=== PATIENT | male | born 1975 | race Caucasian/White ===

== ENCOUNTER 2021-02-27 15:52 | Emergency (ER) | payer OTHER ==
[2021-02-27 16:12] VITALS: TEMP 98.6; BMI 29.5
[2021-02-27] MEDS ORDERED: KETOROLAC TROMETHAMINE 30 MG/1 ML VIAL IVPUSH STA (16:14)
[2021-02-27] MEDS ORDERED: ONDANSETRON 4 MG/2 ML VIAL IVPUSH ONE (16:14)
[2021-02-27] MEDS ORDERED: SODIUM CHLORIDE 1,000 ML IV STA (16:14)
[2021-02-27 17:08] LABS: BASO % 0.3 % (0-2.0); EOS % 0.7 % (0-4.5); HEMATOCRIT 41.7 % (35.4-49); HEMOGLOBIN 14.1 GM/dL (11.7-16.9); LYMPH % 9.3 % (8-40); MCH 30.2 pg (25.7-33.7); MCHC 33.9 g/dl (32.0-35.9); MEAN CELL VOLUME 89.3 fl (80-96); MEAN PLT VOLUME 7.2 fl (7.5-11.1); MONO % 3.3 % (3.8-10.2); NEUT % 86.4 % (42.8-82.8); PLATELET COUNT 519 K/MM3 (134-434); RBC 4.67 M/mm3 (4.00-5.60); RDW 13.8 % (11.9-15.9); WHITE BLOOD COUNT 12.4 K/mm3 (4.0-10.0)
[2021-02-27 17:11] LABS: EPI CELLS 3 /uL (0-25.1); HYALINE CASTS 46 /uL (0-3.1); URINE APPEARANCE TURBID; URINE BILIRUBIN 2+ (NEGATIVE); URINE COLOR RED; URINE GLUCOSE (UA) NEGATIVE (NEGATIVE); URINE KETONE NEGATIVE (NEGATIVE); URINE LEUK ESTERASE 2+ (NEGATIVE); URINE NITRITE POSITIVE (NEGATIVE); URINE PROTEIN 3+ (NEGATIVE); URINE UROBILINOGEN 0.2 mg/dL (0.2-1.0); URINE WBC 808 /uL (0-25.8)
[2021-02-27 17:13] VITALS: BP 125/85; PULSE 101
[2021-02-27 17:19] LABS: POTASSIUM 3.9 mmol/L (3.5-5.1)
[2021-02-27 17:21] LABS: ALBUMIN 4.7 g/dl (3.4-5.0); CALCIUM 9.6 mg/dL (8.5-10.1)
[2021-02-27 17:22] LABS: BLOOD UREA NITROGEN 25.5 mg/dL (7-18)
[2021-02-27 17:25] LABS: CREATININE 1.4 mg/dL (0.55-1.3)
[2021-02-27 17:26] LABS: BILIRUBIN,TOTAL 0.4 mg/dL (0.2-1); TOT PROT 8.2 g/dl (6.4-8.2)
[2021-02-27 18:09] LABS: URINE BACTERIA 106.1 /uL (0-1359)
== END 2021-02-27 20:23 | disposition home or self-care (01) ==
LOC: JER 15:52
PROC: 3E03329 Introduction of Other Anti-infective into Peripheral Vein, Percutaneous Approach (ICD-10-PCS; principal; 2021-02-27)
PROC: 3E033GC Introduction of Other Therapeutic Substance into Peripheral Vein, Percutaneous Approach (ICD-10-PCS; 2021-02-27)
PROC: 3E0337Z Introduction of Electrolytic and Water Balance Substance into Peripheral Vein, Percutaneous Approach (ICD-10-PCS; 2021-02-27)
DX: N20.0 Calculus of kidney (principal); N39.0 Urinary tract infection, site not specified
CPT/HCPCS: 36415; 74176-TC; 80053; 81003; 83690; 85025; 87086; 99284-25

== ENCOUNTER 2021-03-04 16:36 | Emergency (ER) | payer OTHER ==
[2021-03-04 16:46] VITALS: BP 138/100; PULSE 115; TEMP 98.3; BMI 25.7
== END 2021-03-04 20:57 | disposition home or self-care (01) ==
LOC: JER 16:36
DX: F41.9 Anxiety disorder, unspecified (principal)
CPT/HCPCS: 99282-25

== ENCOUNTER 2021-03-09 19:02 | Emergency (ER) | payer OTHER ==
[2021-03-09 19:17] VITALS: BP 123/87; PULSE 110; TEMP 98; BMI 28.8
[2021-03-09 22:17] LABS: BASO % 0.4 % (0-2.0); EOS % 1.2 % (0-4.5); HEMOGLOBIN 14.9 GM/dL (11.7-16.9); LYMPH % 10.8 % (8-40); MCH 30.4 pg (25.7-33.7); MCHC 34.6 g/dl (32.0-35.9); MEAN CELL VOLUME 87.8 fl (80-96); MEAN PLT VOLUME 7.9 fl (7.5-11.1); MONO % 4.8 % (3.8-10.2); NEUT % 82.8 % (42.8-82.8); PLATELET COUNT 452 K/MM3 (134-434); RDW 13.8 % (11.9-15.9); WHITE BLOOD COUNT 12.9 K/mm3 (4.0-10.0)
[2021-03-09 22:28] LABS: CHLORIDE 105 mmol/L (98-107); SODIUM 136 mmol/L (136-145)
[2021-03-09 22:30] LABS: CALCIUM 9.4 mg/dL (8.5-10.1)
[2021-03-09 22:31] LABS: ALBUMIN 4.5 g/dl (3.4-5.0); ANION GAP 7 MMOL/L (8-16); CO2 24 mmol/L (21-32); GLUCOSE,RANDOM 113 mg/dL (74-106)
[2021-03-09 22:34] LABS: CREATININE 1.3 mg/dL (0.55-1.3); SGOT/AST 17 U/L (15-37); SGPT/ALT 39 U/L (13-61)
[2021-03-09 22:35] LABS: BILIRUBIN,TOTAL 0.5 mg/dL (0.2-1)
[2021-03-09 22:37] LABS: ALK PHOS 121 U/L (45-117)
== END 2021-03-10 00:33 | disposition home or self-care (01) ==
LOC: JER 19:02
DX: J31.0 Chronic rhinitis (principal); R05 Cough
CPT/HCPCS: 36415; 71275-TC; 80053; 82550; 82553; 84443; 85025; 93005; 93010; 99285-25; C9803; U0003; U0005

== ENCOUNTER 2021-03-15 04:15 | Day surgery (SDC) | payer OTHER ==
[2021-03-12 13:03] VITALS: BMI 28.8
[2021-03-15] MEDS ORDERED: MIDAZOLAM HCL 2 MG/2 ML SINGLE DOSE VIAL ONE (09:03)
[2021-03-15] MEDS ORDERED: PROPOFOL 20 ML ONE ×2 (09:03→11:07)
[2021-03-15] MEDS ORDERED: CEFTRIAXONE 1 GM in DEXTROSE 5%-WATER - 50 ML IVPB ONE (10:45)
[2021-03-15] MEDS ORDERED: ACETAMINOPHEN 325 MG TABLET (FP) PO PRN (10:46)
[2021-03-15] MEDS ORDERED: ONDANSETRON 4 MG/2 ML VIAL IVPUSH PRN (10:46)
[2021-03-15] MEDS ORDERED: cefTRIAXone SODIUM 1 GM VIAL IVPB ONE (10:47)
[2021-03-15] MEDS ORDERED: LACTATED RINGERS SOLUTION 1,000 ML IV SCH (11:00)
[2021-03-15 12:48] VITALS: BP 125/78; PULSE 74; TEMP 97.8
== END 2021-03-15 12:40 | disposition home or self-care (01) ==
LOC: JASU-SURG 04:15
PROVIDERS: ATTEND Urology
PROC: 0TF3XZZ Fragmentation in Right Kidney Pelvis, External Approach (ICD-10-PCS; principal; 2021-03-15 10:00)
DX: N20.0 Calculus of kidney (principal)

== ENCOUNTER 2021-03-22 20:04 | Inpatient (IN) | payer OTHER ==
[2021-03-22] MEDS ORDERED: ONDANSETRON 4 MG/2 ML VIAL IVPUSH ONE (20:47)
[2021-03-22] MEDS ORDERED: ACETAMINOPHEN 1000 MG/100 ML VIAL (NON FORMULARY) IVPB ONE (20:47)
[2021-03-22] MEDS ORDERED: ACETAMINOPHEN INJECTION 100 ML IVPB ONE (20:53)
[2021-03-22] MEDS ORDERED: ONDANSETRON 4 MG/2 ML VIAL ONE (20:54)
[2021-03-22] MEDS ORDERED: METOCLOPRAMIDE HCL INJECTION 10 MG/2 ML VIAL IVPUSH ONE (21:11)
[2021-03-22] MEDS ORDERED: LACTATED RINGERS SOLUTION 1000 ML INFUS.BAG IV ONE (21:12)
[2021-03-22] MEDS ORDERED: METOCLOPRAMIDE HCL INJECTION 10 MG/2 ML VIAL ONE (21:23)
[2021-03-22] MEDS ORDERED: CEFTRIAXONE 1 GM in DEXTROSE 5%-WATER - 50 ML IVPB ONE (21:44)
[2021-03-22] MEDS ORDERED: CEFTRIAXONE 1 GM/50 ML BAG ONE (22:18)
[2021-03-22 22:23] LABS: BASO % 0.3 % (0-2.0); EOS % 0.9 % (0-4.5); HEMATOCRIT 39.7 % (35.4-49); HEMOGLOBIN 13.6 GM/dL (11.7-16.9); LYMPH % 6.9 % (8-40); MCH 30.5 pg (25.7-33.7); MCHC 34.2 g/dl (32.0-35.9); MEAN PLT VOLUME 7.8 fl (7.5-11.1); MONO % 5.7 % (3.8-10.2); NEUT % 86.2 % (42.8-82.8); PLATELET COUNT 324 K/MM3 (134-434); RBC 4.47 M/mm3 (4.00-5.60); RDW 13.8 % (11.9-15.9); WHITE BLOOD COUNT 15.8 K/mm3 (4.0-10.0)
[2021-03-22 22:24] LABS: URINE APPEARANCE CLEAR; URINE BILIRUBIN NEGATIVE (NEGATIVE); URINE COLOR YELLOW; URINE GLUCOSE (UA) NEGATIVE (NEGATIVE); URINE KETONE TRACE (NEGATIVE); URINE LEUK ESTERASE NEGATIVE (NEGATIVE); URINE NITRITE NEGATIVE (NEGATIVE); URINE PROTEIN NEGATIVE (NEGATIVE); URINE UROBILINOGEN 0.2 mg/dL (0.2-1.0)
[2021-03-22 22:35] LABS: INR 1.08 (0.83-1.09); PROTHROMBIN TIME (PATIENT) 13.3 SEC (9.7-13.0)
[2021-03-22 22:42] LABS: CHLORIDE 104 mmol/L (98-107); SODIUM 138 mmol/L (136-145)
[2021-03-22 22:43] LABS: CALCIUM 9.3 mg/dL (8.5-10.1)
[2021-03-22 22:44] LABS: ANION GAP 6 MMOL/L (8-16); BLOOD UREA NITROGEN 17.1 mg/dL (7-18); CO2 28 mmol/L (21-32); GLUCOSE,RANDOM 107 mg/dL (74-106)
[2021-03-22 22:47] LABS: CREATININE 1.1 mg/dL (0.55-1.3); SGOT/AST 7 U/L (15-37); SGPT/ALT 27 U/L (13-61)
[2021-03-22 22:49] LABS: TOT PROT 7.4 g/dl (6.4-8.2)
[2021-03-22 22:50] LABS: ALK PHOS 117 U/L (45-117)
[2021-03-22 22:56] LABS: BILIRUBIN,TOTAL 0.6 mg/dL (0.2-1)
[2021-03-22] MEDS ORDERED: LACTATED RINGERS SOLUTION 1,000 ML IV SCH (23:30)
[2021-03-22] MEDS ORDERED: SODIUM CHLORIDE 1,000 ML IV SCH (23:45)
[2021-03-23] MEDS ORDERED: ONDANSETRON 4 MG/2 ML VIAL IVPUSH PRN ×4 (00:01→15:44)
[2021-03-23] MEDS ORDERED: HYDROmorphone HCL CARPU-JECT 2 MG/1 ML DISP.SYRIN IVPUSH ONE (00:13)
[2021-03-23] MEDS ORDERED: HYDROmorphone HCl 2 MG/ML VIAL ONE (00:27)
[2021-03-23] MEDS ORDERED: ACETAMINOPHEN 1000 MG/100 ML VIAL (NON FORMULARY) IVPB PRN ×2 (03:00→15:44)
[2021-03-23 05:37] VITALS: BMI 29.5
[2021-03-23 08:55] LABS: HEMATOCRIT 37.6 % (35.4-49); HEMOGLOBIN 12.9 GM/dL (11.7-16.9); MCH 30.7 pg (25.7-33.7); MCHC 34.4 g/dl (32.0-35.9); MEAN CELL VOLUME 89.2 fl (80-96); PLATELET COUNT 282 K/MM3 (134-434); RBC 4.22 M/mm3 (4.00-5.60); RDW 13.7 % (11.9-15.9); WHITE BLOOD COUNT 13.1 K/mm3 (4.0-10.0)
[2021-03-23] MEDS ORDERED: CEFTRIAXONE 1 GM in DEXTROSE 5%-WATER - 50 ML IVPB SCH (10:00)
[2021-03-23] MEDS ORDERED: DEXTROSE 5%-WATER - 50 ML IVPB ONE (10:10)
[2021-03-23] MEDS ORDERED: cefTRIAXone SODIUM 1 GM VIAL ONE (10:10)
[2021-03-23] MEDS ORDERED: fentaNYL CITRATE 250 MCG/5 ML VIAL ONE (11:21)
[2021-03-23] MEDS ORDERED: PROPOFOL 20 ML ONE (11:21)
[2021-03-23] MEDS ORDERED: ROCURONIUM BROMIDE 50 MG/5 ML SYRINGE ONE (11:22)
[2021-03-23] MEDS ORDERED: MIDAZOLAM HCL 2 MG/2 ML SINGLE DOSE VIAL ONE (11:22)
[2021-03-23 11:24] LABS: ALBUMIN 3.5 g/dl (3.4-5.0); CALCIUM 9.2 mg/dL (8.5-10.1); TOT PROT 6.8 g/dl (6.4-8.2)
[2021-03-23] MEDS ORDERED: SUCCINYLCHOLINE CHLORIDE 200 MG/10 ML SYRINGE ONE (11:35)
[2021-03-23] MEDS ORDERED: DEXAMETHASONE SOD PHOSPHATE 4 MG/1 ML VIAL ONE (11:47)
[2021-03-23] MEDS ORDERED: EPHEDRINE SULFATE/0.9% NACL/PF 50 MG/10 ML SYRINGE NR ONE (12:08)
[2021-03-23] MEDS ORDERED: LACTATED RINGERS SOLUTION 1,000 ML IV SCH (12:30)
[2021-03-23] MEDS ORDERED: NEOSTIGMINE METHYLSULFATE 0.5 MG/ML - 10 ML MDV ONE (12:55)
[2021-03-23] MEDS ORDERED: GLYCOPYRROLATE 0.2 MG/1 ML VIAL ONE (12:56)
[2021-03-23] MEDS ORDERED: BUPIVACAINE HCL/PF 0.5% (5 MG/ML) 30 ML VIAL IJ ONE (13:19)
[2021-03-23] MEDS ORDERED: oxyCODONE HCL 5 MG TABLET PO PRN ×2 (15:44)
[2021-03-23] MEDS: SODIUM CHLORIDE 1,000 ML IV SCH (16:00)
[2021-03-23] MEDS: ESCITALOPRAM OXALATE 10 MG TABLET PO SCH (18:48)
[2021-03-23] MEDS ORDERED: TAMSULOSIN HCL 0.4 MG CAP PO ONE (20:32)
[2021-03-23] MEDS: PATIENT'S OWN MEDICATION (NON-FORMULARY) (Alfuzosin Hcl [Uroxatral] 10 MG Tab.Er.24h) PO SCH (22:22)
[2021-03-24] MEDS: SODIUM CHLORIDE 1,000 ML IV SCH ×2 (03:15→11:46)
[2021-03-24] MEDS ORDERED: PT OWN MED DRAWER 7, Y5N ONE ×2 (05:18→09:05)
[2021-03-24 08:35] LABS: BASO % 0.1 % (0-2.0); EOS % 0.4 % (0-4.5); HEMATOCRIT 31.9 % (35.4-49); HEMOGLOBIN 11.1 GM/dL (11.7-16.9); LYMPH % 5.4 % (8-40); MCH 30.9 pg (25.7-33.7); MCHC 34.7 g/dl (32.0-35.9); MEAN PLT VOLUME 7.5 fl (7.5-11.1); NEUT % 88.1 % (42.8-82.8); PLATELET COUNT 262 K/MM3 (134-434); RBC 3.59 M/mm3 (4.00-5.60); WHITE BLOOD COUNT 9.7 K/mm3 (4.0-10.0)
[2021-03-24 09:07] LABS: BLOOD UREA NITROGEN 9.5 mg/dL (7-18)
[2021-03-24 09:08] LABS: BILIRUBIN,TOTAL 0.4 mg/dL (0.2-1)
[2021-03-24 09:11] LABS: CREATININE 0.8 mg/dL (0.55-1.3)
[2021-03-24] MEDS: PATIENT'S OWN MEDICATION (NON-FORMULARY) (Alfuzosin Hcl [Uroxatral] 10 MG Tab.Er.24h) PO SCH (10:17)
[2021-03-24] MEDS: ESCITALOPRAM OXALATE 10 MG TABLET PO SCH (10:17)
[2021-03-24 13:52] VITALS: BP 128/79; PULSE 91; TEMP 99
[2021-03-24] MEDS ORDERED: MAG HYDROX/AL HYDROX/SIMETH 30 ML UNIT-DOSE CUP PO ONE (15:15)
[2021-03-24] MEDS ORDERED: ACETAMINOPHEN 500 MG TABLET (FP) PO PRN (15:48)
== END 2021-03-24 15:55 | disposition home or self-care (01) | DRG 419 ==
LOC: JER 20:04 → JERBED 22:49 → J6S 03-23 05:28
PROVIDERS: ADMIT Internal Medicine; ATTEND Family Medicine
PROC: 0WUF4JZ Supplement Abdominal Wall with Synthetic Substitute, Percutaneous Endoscopic Approach (ICD-10-PCS; 2021-03-23)
PROC: 0FT44ZZ Resection of Gallbladder, Percutaneous Endoscopic Approach (ICD-10-PCS; principal; 2021-03-23 10:00)
DX: K80.00 Calculus of gallbladder with acute cholecystitis without obstruction (principal); I10 Essential (primary) hypertension; F41.8 Other specified anxiety disorders; K42.9 Umbilical hernia without obstruction or gangrene
CPT/HCPCS: 36415; 71046-TC-FY; 76705-TC; 80053; 81003; 84484; 85025; 85027; 85610; 85730; 86850; 86900; 86901; 87086; 88302-TC; 88304-TC; 93005; 93010; 94010; 94760; 99285-25; C9803; J0131; U0003; U0005

== ENCOUNTER 2021-03-25 15:16 | Emergency (ER) | payer OTHER ==
[2021-03-25 15:23] VITALS: BMI 28.2
[2021-03-25] MEDS ORDERED: LACTATED RINGERS SOLUTION 1000 ML INFUS.BAG IV ONE ×2 (15:36→17:45)
[2021-03-25 16:17] LABS: BASO % 1.3 % (0-2.0); EOS % 0.3 % (0-4.5); HEMATOCRIT 38.4 % (35.4-49); HEMOGLOBIN 12.9 GM/dL (11.7-16.9); LYMPH % 1.8 % (8-40); MCH 30.2 pg (25.7-33.7); MCHC 33.6 g/dl (32.0-35.9); MEAN PLT VOLUME 7.8 fl (7.5-11.1); MONO % 3.5 % (3.8-10.2); NEUT % 93.1 % (42.8-82.8); PLATELET COUNT 306 K/MM3 (134-434); RBC 4.26 M/mm3 (4.00-5.60); WHITE BLOOD COUNT 12.5 K/mm3 (4.0-10.0)
[2021-03-25] MEDS ORDERED: PIPERACILLIN/TAZOB 4.5 GM 4.5 GM in DEXTROSE 5%-WATER 100 ML IVPB ONE (16:22)
[2021-03-25 16:33] LABS: CHLORIDE 104 mmol/L (98-107); SODIUM 137 mmol/L (136-145)
[2021-03-25 16:36] LABS: ANION GAP 7 MMOL/L (8-16); BLOOD UREA NITROGEN 9.2 mg/dL (7-18); CALCIUM 9.1 mg/dL (8.5-10.1); CO2 26 mmol/L (21-32); GLUCOSE,RANDOM 177 mg/dL (74-106)
[2021-03-25] MEDS ORDERED: morphine SULFATE 4 MG/ML VIAL IVPUSH ONE (16:37)
[2021-03-25 16:38] LABS: CREATININE 0.9 mg/dL (0.55-1.3); SGOT/AST 477 U/L (15-37); SGPT/ALT 622 U/L (13-61)
[2021-03-25] MEDS ORDERED: ONDANSETRON 4 MG/2 ML VIAL IVPB ONE (16:38)
[2021-03-25] MEDS ORDERED: ACETAMINOPHEN 1000 MG/100 ML VIAL (NON FORMULARY) IVPB ONE (16:38)
[2021-03-25 16:40] LABS: BILIRUBIN,TOTAL 3.9 mg/dL (0.2-1); TOT PROT 6.9 g/dl (6.4-8.2)
[2021-03-25] MEDS ORDERED: morphine SULFATE 4 MG/ML VIAL ONE (16:46)
[2021-03-25] MEDS ORDERED: ACETAMINOPHEN INJECTION 100 ML IVPB ONE (16:46)
[2021-03-25 17:01] LABS: ALBUMIN 3.6 g/dl (3.4-5.0); ALK PHOS 447 U/L (45-117); LIPASE 15451 U/L (73-393)
[2021-03-25 17:11] LABS: EPI CELLS 4 /uL (0-25.1); HYALINE CASTS 1 /uL (0-3.1); PH,URINE 7.5 (5.0-8.0); URINE APPEARANCE TURBID; URINE BACTERIA 20 /uL (0-1359); URINE BILIRUBIN 2+ (NEGATIVE); URINE COLOR DK YELLOW; URINE GLUCOSE (UA) NEGATIVE (NEGATIVE); URINE KETONE TRACE (NEGATIVE); URINE LEUK ESTERASE TRACE (NEGATIVE); URINE NITRITE NEGATIVE (NEGATIVE); URINE PROTEIN 1+ (NEGATIVE); URINE RBC 15 /uL (0-23.9); URINE WBC 11 /uL (0-25.8)
[2021-03-25 17:17] LABS: INR 1.06 (0.83-1.09); PROTHROMBIN TIME (PATIENT) 12.8 SEC (9.7-13.0)
[2021-03-25 17:20] LABS: ACTIVATED PTT 25.5 SECONDS (25.2-36.5)
[2021-03-25] MEDS ORDERED: HYDROmorphone HCL CARPU-JECT 2 MG/1 ML DISP.SYRIN IVPUSH ONE ×2 (18:04→23:56)
[2021-03-25] MEDS ORDERED: HYDROmorphone HCl 2 MG/ML VIAL ONE ×2 (18:10→23:59)
[2021-03-26 00:06] VITALS: BP 144/90; PULSE 96; TEMP 99.2
== END 2021-03-25 23:56 | disposition short-term general hospital (02) ==
LOC: JER 15:16
PROC: 3E0333Z Introduction of Anti-inflammatory into Peripheral Vein, Percutaneous Approach (ICD-10-PCS; principal; 2021-03-25)
PROC: 3E033NZ Introduction of Analgesics, Hypnotics, Sedatives into Peripheral Vein, Percutaneous Approach (ICD-10-PCS; 2021-03-25)
PROC: 3E033NZ Introduction of Analgesics, Hypnotics, Sedatives into Peripheral Vein, Percutaneous Approach (ICD-10-PCS; 2021-03-25)
PROC: 3E033NZ Introduction of Analgesics, Hypnotics, Sedatives into Peripheral Vein, Percutaneous Approach (ICD-10-PCS; 2021-03-25)
PROC: 3E033GC Introduction of Other Therapeutic Substance into Peripheral Vein, Percutaneous Approach (ICD-10-PCS; 2021-03-25)
PROC: 3E03329 Introduction of Other Anti-infective into Peripheral Vein, Percutaneous Approach (ICD-10-PCS; 2021-03-25)
DX: K85.10 Biliary acute pancreatitis without necrosis or infection (principal); K83.09 Other cholangitis; K80.40 Calculus of bile duct with cholecystitis, unspecified, without obstruction
CPT/HCPCS: 36415; 71045-TC-FY; 76705-TC; 80053; 81003; 83605; 83690; 84484; 85025; 85610; 85730; 86850; 86900; 86901; 87040; 87086; 93005; 93010; 99291; C9803; J0131; U0003; U0005

== ENCOUNTER 2021-04-12 04:33 | Day surgery (SDC) | payer OTHER ==
[2021-04-07 12:13] VITALS: BMI 27.2
[2021-04-12] MEDS ORDERED: ceFAZolin SODIUM 1 GM VIAL ONE (14:09)
[2021-04-12] MEDS ORDERED: GENTAMICIN SO4 80 MG/2 ML VIAL ONE (14:09)
[2021-04-12] MEDS ORDERED: GENTAMICIN SO4 80 MG/2 ML VIAL IVPB ONE (15:10)
[2021-04-12] MEDS ORDERED: PROPOFOL 20 ML ONE (15:10)
[2021-04-12] MEDS ORDERED: ceFAZolin SODIUM 1 GM VIAL IVPB ONE (15:15)
[2021-04-12 17:28] VITALS: TEMP 97.6
[2021-04-12 17:30] VITALS: BP 119/73; PULSE 85
== END 2021-04-12 17:10 | disposition home or self-care (01) ==
LOC: JASU-SURG 04:33
PROVIDERS: ATTEND Urology
PROC: 0TF4XZZ Fragmentation in Left Kidney Pelvis, External Approach (ICD-10-PCS; principal; 2021-04-12 14:00)
DX: N20.0 Calculus of kidney (principal); E11.9 Type 2 diabetes mellitus without complications; I10 Essential (primary) hypertension

== ENCOUNTER 2021-08-16 04:27 | Day surgery (SDC) | payer OTHER ==
[2021-08-12 13:48] VITALS: BMI 30.2
[2021-08-16] MEDS ORDERED: MIDAZOLAM HCL 2 MG/2 ML SINGLE DOSE VIAL ONE (10:16)
[2021-08-16] MEDS ORDERED: ceFAZolin SODIUM 1 GM VIAL IVPB ONE (10:23)
[2021-08-16] MEDS ORDERED: GENTAMICIN 80MG PREMIX BAG IVPB ONE ×2 (10:27→10:28)
[2021-08-16] MEDS ORDERED: GENTAMICIN SO4 80 MG/2 ML VIAL ONE (10:27)
[2021-08-16] MEDS ORDERED: ACETAMINOPHEN 325 MG TABLET (FP) ONE (11:20)
[2021-08-16] MEDS ORDERED: ACETAMINOPHEN 325 MG TABLET (FP) PO ONE (11:20)
[2021-08-16] MEDS ORDERED: ONDANSETRON 4 MG/2 ML VIAL ONE (11:28)
[2021-08-16] MEDS ORDERED: ONDANSETRON 4 MG/2 ML VIAL IVPUSH ONE (11:35)
[2021-08-16] MEDS ORDERED: ONDANSETRON 4 MG/2 ML VIAL IVPB ONE (11:45)
[2021-08-16] MEDS ORDERED: ACETAMINOPHEN 500 MG TABLET (FP) PO ONE (11:45)
[2021-08-16 13:39] VITALS: BP 127/81; PULSE 63; TEMP 97.3
== END 2021-08-16 13:50 | disposition home or self-care (01) ==
LOC: JASU-SURG 04:27
PROVIDERS: ATTEND Urology
PROC: 0TF4XZZ Fragmentation in Left Kidney Pelvis, External Approach (ICD-10-PCS; principal; 2021-08-16 10:00)
DX: N20.0 Calculus of kidney (principal)

== ENCOUNTER 2022-01-09 17:17 | Inpatient (IN) | payer OTHER ==
[2022-01-09 17:24] VITALS: BMI 28.8
[2022-01-09] MEDS ORDERED: ACETAMINOPHEN 1000 MG/100 ML BAG IVPB ONE (18:31)
[2022-01-09] MEDS ORDERED: ONDANSETRON 4 MG/2 ML VIAL IVPUSH ONE (18:31)
[2022-01-09] MEDS ORDERED: ONDANSETRON 4 MG/2 ML VIAL ONE (19:03)
[2022-01-09] MEDS ORDERED: ACETAMINOPHEN INJECTION 100 ML IVPB ONE (19:03)
[2022-01-09 19:45] LABS: EPI CELLS 3 /uL (0-25.1); HYALINE CASTS 3 /uL (0-3.1); PH,URINE 5.5 (5.0-8.0); URINE APPEARANCE CLEAR; URINE BACTERIA 3 /uL (0-1359); URINE BILIRUBIN NEGATIVE (NEGATIVE); URINE COLOR YELLOW; URINE GLUCOSE (UA) NEGATIVE (NEGATIVE); URINE KETONE TRACE (NEGATIVE); URINE LEUK ESTERASE TRACE (NEGATIVE); URINE NITRITE NEGATIVE (NEGATIVE); URINE PROTEIN 1+ (NEGATIVE); URINE RBC 54 /uL (0-23.9); URINE UROBILINOGEN 0.2 mg/dL (0.2-1.0); URINE WBC 43 /uL (0-25.8)
[2022-01-09 19:47] LABS: INR 1.1 (0.83-1.09); PROTHROMBIN TIME (PATIENT) 12.7 SEC (9.7-13.0)
[2022-01-09 19:50] LABS: ACTIVATED PTT 30.1 SECONDS (25.2-36.5)
[2022-01-09 19:59] LABS: ALBUMIN 4.1 g/dl (3.4-5.0); BLOOD UREA NITROGEN 15.1 mg/dL (7-18)
[2022-01-09 20:00] LABS: YEAST NONE SEEN (NEGATIVE)
[2022-01-09 20:04] LABS: BILIRUBIN,TOTAL 0.8 mg/dL (0.2-1); CREATININE 0.9 mg/dL (0.55-1.3); TOT PROT 7.3 g/dl (6.4-8.2)
[2022-01-09 20:18] LABS: BASO % 0.1 % (0-2.0); EOS % 0.1 % (0-4.5); HEMATOCRIT 38.6 % (35.4-49); LYMPH % 4.8 % (8-40); MCH 29.3 pg (25.7-33.7); MCHC 33.6 g/dl (32.0-35.9); MEAN CELL VOLUME 87.1 fl (80-96); MEAN PLT VOLUME 8.1 fl (7.5-11.1); MONO % 5.1 % (3.8-10.2); NEUT % 89.9 % (42.8-82.8); PLATELET COUNT 262 10^3/uL (134-434); RBC 4.43 M/mm3 (4.00-5.60); RDW 13.2 % (11.9-15.9); WHITE BLOOD COUNT 15.2 K/mm3 (4.0-10.0)
[2022-01-09] MEDS ORDERED: SODIUM CHLORIDE 0.9% 500 ML INFUS.BAG IV ONE (20:21)
[2022-01-09] MEDS ORDERED: MEROPENEM 1 GM in DEXTROSE 5%-WATER 100 ML IVPB ONE (21:23)
[2022-01-09] MEDS ORDERED: MEROPENEM 1 GM VIAL (RESTRICTED TO ID) IVPB ONE (21:46)
[2022-01-10] MEDS: SODIUM CHLORIDE 1,000 ML IV SCH ×2 (02:22→09:36)
[2022-01-10] MEDS ORDERED: MELATONIN 5 MG TABLETS PO ONE (04:37)
[2022-01-10] MEDS ORDERED: MELATONIN 5 MG TABLETS ONE (04:50)
[2022-01-10] MEDS: ENOXAPARIN NA (PORCINE) 40 MG/0.4 ML DISP.SYRIN SQ SCH (09:35)
[2022-01-10] MEDS: amLODIPine BESYLATE 10 MG TABLET (FP) PO SCH (09:35)
[2022-01-10] MEDS ORDERED: MEROPENEM 1 GM in DEXTROSE 5%-WATER 100 ML IVPB SCH (10:30)
[2022-01-10] MEDS ORDERED: DEXTROSE 5%-WATER 100 ML IVPB ONE (11:12)
[2022-01-10] MEDS ORDERED: MEROPENEM 1 GM VIAL (RESTRICTED TO ID) IVPB ONE (11:12)
[2022-01-10] MEDS: PANTOPRAZOLE 40 MG TABLET PO SCH (11:16)
[2022-01-10] MEDS: TAMSULOSIN HCL 0.4 MG CAP PO SCH (11:16)
[2022-01-10 12:02] LABS: HEMATOCRIT 36.8 % (35.4-49); HEMOGLOBIN 12.7 GM/dL (11.7-16.9); MCHC 34.6 g/dl (32.0-35.9); MEAN CELL VOLUME 86.7 fl (80-96); MEAN PLT VOLUME 7.8 fl (7.5-11.1); PLATELET COUNT 249 10^3/uL (134-434); RBC 4.24 M/mm3 (4.00-5.60); RDW 13.5 % (11.9-15.9); WHITE BLOOD COUNT 9.6 K/mm3 (4.0-10.0)
[2022-01-10 12:19] LABS: CALCIUM 9.3 mg/dL (8.5-10.1)
[2022-01-10 12:20] LABS: ALBUMIN 3.5 g/dl (3.4-5.0); BLOOD UREA NITROGEN 10.3 mg/dL (7-18); MAGNESIUM 2.3 mg/dL (1.8-2.4)
[2022-01-10 12:23] LABS: CREATININE 0.8 mg/dL (0.55-1.3)
[2022-01-10 12:24] LABS: BILIRUBIN,TOTAL 0.9 mg/dL (0.2-1); TOT PROT 6.6 g/dl (6.4-8.2)
[2022-01-10] MEDS ORDERED: CEFTRIAXONE 1 GM in DEXTROSE 5%-WATER - 50 ML IVPB SCH (15:00)
[2022-01-10] MEDS ORDERED: DEXTROSE 5%-WATER - 50 ML IVPB ONE (20:58)
[2022-01-10] MEDS ORDERED: cefTRIAXone SODIUM 1 GM VIAL ONE (20:58)
[2022-01-10] MEDS: LACTOBACILLUS ACIDOPHILUS 1 TABLET PO SCH (21:02)
[2022-01-10] MEDS: CEFTRIAXONE 1 GM in DEXTROSE 5%-WATER - 50 ML IVPB SCH (21:02)
[2022-01-10] MEDS: ACETAMINOPHEN 325 MG TABLET (FP) PO PRN (21:03)
[2022-01-11] MEDS: SODIUM CHLORIDE 1,000 ML IV SCH (02:42)
[2022-01-11] MEDS: ACETAMINOPHEN 325 MG TABLET (FP) PO PRN (05:42)
[2022-01-11 09:07] LABS: BASO % 0.3 % (0-2.0); EOS % 2.3 % (0-4.5); HEMATOCRIT 37.8 % (35.4-49); HEMOGLOBIN 12.9 GM/dL (11.7-16.9); LYMPH % 16.3 % (8-40); MCH 29.7 pg (25.7-33.7); MCHC 34.2 g/dl (32.0-35.9); MEAN PLT VOLUME 7.8 fl (7.5-11.1); MONO % 8.8 % (3.8-10.2); NEUT % 72.3 % (42.8-82.8); PLATELET COUNT 263 10^3/uL (134-434); RBC 4.34 M/mm3 (4.00-5.60); RDW 13.1 % (11.9-15.9); WHITE BLOOD COUNT 7.5 K/mm3 (4.0-10.0)
[2022-01-11 09:08] LABS: CALCIUM 8.9 mg/dL (8.5-10.1)
[2022-01-11 09:09] LABS: BLOOD UREA NITROGEN 14.9 mg/dL (7-18); MAGNESIUM 2.4 mg/dL (1.8-2.4)
[2022-01-11 09:12] LABS: CREATININE 0.9 mg/dL (0.55-1.3); PHOSPHOROUS 3.8 mg/dL (2.5-4.9)
[2022-01-11] MEDS ORDERED: DEXTROSE 5%-WATER - 50 ML IVPB ONE (10:35)
[2022-01-11] MEDS ORDERED: cefTRIAXone SODIUM 1 GM VIAL ONE (10:35)
[2022-01-11] MEDS: ENOXAPARIN NA (PORCINE) 40 MG/0.4 ML DISP.SYRIN SQ SCH (10:50)
[2022-01-11] MEDS: CEFTRIAXONE 1 GM in DEXTROSE 5%-WATER - 50 ML IVPB SCH (10:50)
[2022-01-11] MEDS: TAMSULOSIN HCL 0.4 MG CAP PO SCH (10:50)
[2022-01-11] MEDS: amLODIPine BESYLATE 10 MG TABLET (FP) PO SCH (10:50)
[2022-01-11] MEDS: LACTOBACILLUS ACIDOPHILUS 1 TABLET PO SCH ×2 (10:51→17:28)
[2022-01-11] MEDS: PANTOPRAZOLE 40 MG TABLET PO SCH (10:51)
[2022-01-11] MEDS ORDERED: MELATONIN 5 MG TABLETS PO SCH (23:10)
[2022-01-12] MEDS: ACETAMINOPHEN 325 MG TABLET (FP) PO PRN (01:45)
[2022-01-12 09:17] LABS: BASO % 0.2 % (0-2.0); HEMATOCRIT 37.9 % (35.4-49); LYMPH % 22.3 % (8-40); MCH 29.5 pg (25.7-33.7); MCHC 34.3 g/dl (32.0-35.9); MEAN PLT VOLUME 7.8 fl (7.5-11.1); MONO % 8.8 % (3.8-10.2); NEUT % 65.7 % (42.8-82.8); PLATELET COUNT 307 10^3/uL (134-434); RBC 4.41 M/mm3 (4.00-5.60); RDW 13.3 % (11.9-15.9); WHITE BLOOD COUNT 6.2 K/mm3 (4.0-10.0)
[2022-01-12] MEDS ORDERED: DEXTROSE 5%-WATER - 50 ML IVPB ONE (09:27)
[2022-01-12] MEDS ORDERED: cefTRIAXone SODIUM 1 GM VIAL ONE (09:27)
[2022-01-12] MEDS: CEFTRIAXONE 1 GM in DEXTROSE 5%-WATER - 50 ML IVPB SCH (09:51)
[2022-01-12] MEDS: ENOXAPARIN NA (PORCINE) 40 MG/0.4 ML DISP.SYRIN SQ SCH (09:52)
[2022-01-12] MEDS: LACTOBACILLUS ACIDOPHILUS 1 TABLET PO SCH (09:52)
[2022-01-12] MEDS: PANTOPRAZOLE 40 MG TABLET PO SCH (09:52)
[2022-01-12] MEDS: TAMSULOSIN HCL 0.4 MG CAP PO SCH (09:52)
[2022-01-12] MEDS: amLODIPine BESYLATE 10 MG TABLET (FP) PO SCH (09:52)
[2022-01-12 13:29] VITALS: BP 115/75; PULSE 55; TEMP 98
[2022-01-12 14:07] LABS: BLOOD UREA NITROGEN 17.6 mg/dL (7-18); CREATININE 0.6 mg/dL (0.55-1.3); MAGNESIUM 2.5 mg/dL (1.8-2.4); PHOSPHOROUS 4.2 mg/dL (2.5-4.9)
== END 2022-01-12 14:52 | disposition home or self-care (01) | DRG 920 ==
LOC: JER 17:17 → JERBED 23:46 → J7W 01-10 06:31
PROVIDERS: ADMIT Internal Medicine; ATTEND Internal Medicine
DX: T81.89XA Other complications of procedures, not elsewhere classified, initial encounter (principal); N41.0 Acute prostatitis; N40.0 Benign prostatic hyperplasia without lower urinary tract symptoms; I10 Essential (primary) hypertension; F41.8 Other specified anxiety disorders; E78.5 Hyperlipidemia, unspecified; R19.7 Diarrhea, unspecified; Y83.9 Surgical procedure, unspecified as the cause of abnormal reaction of the patient, or of later complication, without mention of misadventure at the time of the procedure
CPT/HCPCS: 36415; 71045-TC-FY; 74176-TC; 80048; 80053; 81003; 82340; 82550; 82570; 83605; 83735; 84100; 84484; 85025; 85027; 85610; 85730; 86780; 87040; 87086; 87324; 87449; 87491; 87591; 93005; 93010; 99285-25; C9803; U0003; U0005